=== PATIENT | female | born 1955 | race Caucasian/White ===

== ENCOUNTER 2017-01-01 09:23 | Emergency (ER) | payer OTHER ==
[2017-01-01 10:27] VITALS: BP 115/79
--- NOTE | 2017-01-01 10:52 | UC ---
Throat Pain/Nasal Keith HPI - HPI Summary HPI Summary: FOUR DAYS OF RIGHT SIDED CONGESTION, EAR ACHE, EYE REDNESS AND DISCHARGE, SORE THROAT. NO TONSILS. NO FEVER. - History of Current Complaint Chief Complaint: UCRespiratory Stated Complaint: SORE THROAT Time Seen by Provider: 01/01/17 10:02 Hx Obtained From: Patient, Family/[facility] Counselor Onset/Duration: Gradual Onset, Lasting Days, Still Present Severity: Moderate Cough: None Associated Signs & Symptoms: Positive: Hoarseness, Sinus Discomfort, Nasal Discharge - Epiglottits Risk Factors Epiglottis Risk Factors: Negative - Allergies/Home Medications Allergies/Adverse Reactions: Allergies Allergy/AdvReac Type Severity Reaction Status Date / Time No Known Allergies Allergy Verified 01/01/17 10:20 Home Medications: Home Medications Atenolol TAB* [Tenormin TAB* 50 MG] 100 mg PO DAILY 01/01/17 [History Confirmed 01/01/17] Simvastatin TAB(NF) [Zocor(NF)] 20 mg PO DAILY 01/01/17 [History Confirmed 01/01] PMH/Surg Hx/FS Hx/Imm Hx Previously Healthy: Yes - Surgical History Surgical History: Yes Surgery Procedure, Year, and Place: knee reconstruction. brea - Family History Known Family History: Negative: Respiratory Disease - Social History Occupation: Employed Full-time Lives: With Family Alcohol Use: Occasionally Substance Use Type: None Smoking Status (MU): Never Smoked Tobacco Review of Systems Constitutional: Negative Skin: Negative ENT: Ear Ache, Nasal Discharge, Sinus Congestion, Sinus Pain/Tenderness Respiratory: Negative Cardiovascular: Negative Gastrointestinal: Negative Genitourinary: Negative Motor: Negative Neurovascular: Negative Musculoskeletal: Negative Neurological: Negative Psychological: Negative All Other Systems Reviewed And Are Negative: Yes Physical Exam Triage Information Reviewed: Yes Appearance: Well-Appearing, No Pain Distress, Well-Nourished Vital Signs: Initial Vital Signs Temp 97.7 F 01/01/17 10:22 Pulse 84 01/01/17 10:22 Resp 16 01/01/17 10:22 BP 115/79 01/01/17 10:22 Pulse Ox 96 01/01/17 10:22 Vital Signs Reviewed: Yes Eyes: Positive: Conjunctiva Inflamed - RIGHT, Discharge - RIGHT ENT: Positive: Hearing grossly normal, Pharyngeal erythema, TM bulging, TM dull , Other: - CERUMEN IMPACTION RIGHT EAR Dental Exam: Normal Neck exam: Normal Neck: Positive: Supple, Nontender, No Lymphadenopathy Respiratory Exam: Normal Respiratory: Positive: Chest non-tender, Lungs clear, Normal breath sounds, No respiratory distress Cardiovascular Exam: Normal Cardiovascular: Positive: RRR, No Murmur, Pulses Normal, Brisk Capillary Refill Abdominal Exam: Normal Abdomen Description: Positive: Nontender, No Organomegaly Musculoskeletal Exam: Normal Neurological Exam: Normal Psychological Exam: Normal Skin Exam: Normal Throat Pain/Nasal Course/Dx - Differential Dx/Diagnosis Differential Diagnosis/HQI/PQRI: Pharyngitis, Sinusitis, Tonsillitis, URI Provider Diagnoses: SINUSITIS; PHARYNGITIS; RIGHT CONJUNCTIVITIS; CERUMEN IMPACTION RIGHT EAR Discharge - Discharge Plan Condition: Stable Disposition: HOME Prescriptions: Amoxicillin/Clavulanate TAB* [Augmentin TAB 875*] 875 mg PO BID #20 tab Erythromycin OPTH OINT* 1 applic RIGHT EYE TID #1 tube Patient Education Materials: Pharyngitis (ED), Sinusitis (ED), Conjunctivitis ( ED) Referrals: [facility] [Outside]
== END 2017-01-01 10:55 | disposition home or self-care (01) ==
LOC: UCCORT 09:23
DX: J32.9 Chronic sinusitis, unspecified (principal); J02.9 Acute pharyngitis, unspecified; H10.9 Unspecified conjunctivitis; H61.21 Impacted cerumen, right ear
CPT/HCPCS: 99203; G0463

== ENCOUNTER 2017-08-30 08:32 | Emergency (ER) | payer OTHER ==
[2017-08-30 08:49] VITALS: BP 120/79
--- NOTE | 2017-08-30 09:00 | UC ---
Respiratory Complaint HPI - HPI Summary HPI Summary: 61 F with cough. had cough that is worsening over the past 4 days. no fever. no SOB. No CP or ARAGON. 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 some sinus pressure as well - History of Current Complaint Chief Complaint: UCRespiratory Stated Complaint: COUGH Time Seen by Provider: 08/30/17 08:48 Hx Obtained From: Patient ?: No Onset/Duration: Gradual Onset Timing: Constant Severity Initially: Mild Severity Currently: Moderate Pain Intensity: 4 Character: Cough: Productive Associated Signs And Symptoms: Positive: Nasal Congestion, Sinus Discomfort - Allergies/Home Medications Allergies/Adverse Reactions: Allergies Allergy/AdvReac Type Severity Reaction Status Date / Time No Known Allergies Allergy Verified 01/01/17 10:20 Home Medications: Home Medications Chlorpheniramine/Dextromethorp [Coricidin Hbp Cough & Cold Tab] 08/30/17 [ History] Metoprolol Succinate 08/30/17 [History] PMH/Surg Hx/FS Hx/Imm Hx Previously Healthy: Yes Cardiovascular History: Hypertension - Surgical History Surgical History: Yes Surgery Procedure, Year, and Place: knee reconstruction. CHOLESCYSTECTOMY. TONSILLECTOMY - Family History Known Family History: Negative: Respiratory Disease - Social History Occupation: Employed Full-time - teacher Lives: [place] Alcohol Use: Occasionally Substance Use Type: None Smoking Status (MU): Never Smoked Tobacco Review of Systems Constitutional: Fatigue ENT: Ear Ache, Nasal Discharge, Sinus Congestion, Sinus Pain/Tenderness Respiratory: Cough Is Patient Immunocompromised?: No All Other Systems Reviewed And Are Negative: Yes Physical Exam Triage Information Reviewed: Yes Appearance: Well-Appearing, No Pain Distress, Well-Nourished Vital Signs: Initial Vital Signs Temp 98.4 F 08/30/17 08:41 Pulse 84 08/30/17 08:41 Resp 18 08/30/17 08:41 BP 120/79 08/30/17 08:41 Pulse Ox 97 08/30/17 08:41 Vital Signs Reviewed: Yes Eye Exam: Normal ENT Exam: Normal ENT: Positive: Nasal congestion, Nasal drainage, TM dull - left, Sinus tenderness - maxillary left. Negative: Pharyngeal erythema Dental Exam: Normal Neck exam: Normal Neck: Positive: 1 Respiratory Exam: Normal Cardiovascular Exam: Normal Musculoskeletal Exam: Normal Neurological Exam: Normal Psychological Exam: Normal Skin Exam: Normal UC Diagnostic Evaluation - Laboratory O2 Sat by Pulse Oximetry: 97 Respiratory Course/Dx - Course Course Of Treatment: appears viral at this time. conservative treatment at this time. if sx persist or worsened over the next 5-6 days then can start antibiotics. she is aware of SE of meds like the antibiotic and will only use if her Sx persist or worsen . - Differential Dx/Diagnosis Differential Diagnosis/HQI/PQRI: Asthma, Lower Resp Infection, Sinusitis Provider Diagnoses: URI Discharge - Sign-Out/Discharge Documenting (check all that apply): Discharge - Discharge Plan Condition: Good Disposition: HOME Prescriptions: Amoxicillin/Clavulanate TAB* [Augmentin TAB 875*] 875 mg PO BID 10 Days #20 tab Benzonatate CAP* [Tessalon 100 MG CAP*] 100 mg PO TID PRN #20 cap PRN Reason: Cough Patient Education Materials: Upper Respiratory Infection (ED) Referrals: Francisco Javier Leon MD [Primary Care Provider] - 4 Days (if needed ) Additional Instructions: As we discussed it appears you have a viral infection. Please consider flonase in the morning and Netti pot in the PM. If your symptoms worsen over the next 5- 6 days then at that time you can start the antibiotics prescribed. - Billing Disposition and Condition Condition: GOOD Disposition: HOME
== END 2017-08-30 09:15 | disposition home or self-care (01) ==
LOC: UCCORT 08:32
DX: J06.9 Acute upper respiratory infection, unspecified (principal); I10 Essential (primary) hypertension
CPT/HCPCS: 99211; G0463